=== PATIENT | male | born 1965 | race Caucasian/White ===

== ENCOUNTER 2017-10-10 14:45 | Outpatient (RCR) | payer BC ==
[~2017-10-10 14:45] MED LIST: ANDROGEL1%; ANDROGEL1% TP; CLOTRIMAZOLE/BE1 CRE TP; HCTZ 25MG25 MG PO; LISINOPRIL20 MG PO; LOTRISONE CREAM15 GM TP; PEPCID 20MG TAB20 MG PO; SERTRALINE50 MG PO; TRAZADONE HYDR100 MG PO
== END 2018-01-03 | disposition home or self-care (01) ==
LOC: MKS.ESL.PT
DX: S43.421A Sprain of right rotator cuff capsule, initial encounter (principal)
CPT/HCPCS: G0283-GP

== ENCOUNTER → 2017-10-11 | Outpatient (CLI) | payer BC | LOC: COL.RAD 09:35 | DX: M50.122 Cervical disc disorder at C5-C6 level with radiculopathy (principal); M48.02 Spinal stenosis, cervical region; M89.38 Hypertrophy of bone, other site ==

== ENCOUNTER → 2017-10-14 | Outpatient (CLI) | payer BC ==
[~2017-10-14] VITALS: Ht 190.5 cm; Wt 118.2 kg
[2017-10-14 14:34] VITALS: BP 127/75; PULSE 48
[2017-10-14 15:20] VITALS: BP 148/80; PULSE 48
== END ==
LOC: COL.RAD 13:30
DX: M50.222 Other cervical disc displacement at C5-C6 level (principal)
CPT/HCPCS: J1100

== ENCOUNTER → 2017-10-28 | Outpatient (CLI) | payer BC ==
[~2017-10-28] VITALS: Ht 190.5 cm; Wt 116.0 kg
[2017-10-28 13:11] VITALS: BP 138/86; PULSE 65
[2017-10-28 14:35] VITALS: BP 124/76; PULSE 51
[2017-10-28 14:45] VITALS: BP 125/83; PULSE 55
== END ==
LOC: COL.RAD 12:47
DX: M50.122 Cervical disc disorder at C5-C6 level with radiculopathy (principal)
CPT/HCPCS: J1100

== ENCOUNTER 2020-06-20 16:15 | Outpatient (RCR) | payer BC | END 2020-08-14 10:43 | disposition home or self-care (01) | LOC: MKS.ESL.PT 16:15 | DX: M50.222 Other cervical disc displacement at C5-C6 level (principal) | CPT/HCPCS: G0283-GP ==

== ENCOUNTER 2020-10-11 11:29 | Emergency (ER) | payer BC ==
[~2020-10-11] VITALS: Ht 190.5 cm; Wt 111.4 kg
[2020-10-11 11:51] VITALS: TEMP 97.6
[2020-10-11 12:30] LABS: BASO % 0.3 % (0.0-2.0); EOS # 0.1 (0.0-0.7); GRAN # 4.5 (1.4-6.5); HEMATOCRIT 45.5 % (42.0-52.0); HEMOGLOBIN 15.5 g/dl (13.5-18.0); LYMPH # 1.7 (1.2-3.4); LYMPH % 24.9 % (20.0-51.0); MEAN CELL VOLUME 81 fl (80.0-100.0); MEAN CORPUSCULAR HEMOGLOBIN 28 pg (27.0-31.0); MEAN CORPUSCULAR HGB CONC 34 g/dl (33.0-37.0); MEAN PLATELET VOLUME 10.6 fl (7.4-10.4); MONO # 0.6 (0.1-0.6); MONO % 7.9 % (1.7-9.3); PLATELET COUNT 251 K/mm3 (130-400); RED BLOOD COUNT 5.63 M/mm3 (4.20-5.60); REDCELL DISTRIBUTION WIDTH-CV 12.7 % (11.5-14.5)
[2020-10-11 12:38] LABS: ALANINE AMINOTRANSFERASE 57 U/L (4-49); ALBUMIN 4.6 gm/dL (3.5-5.0); ALKALINE PHOSPHATASE 64 U/L (50-136); ANION GAP 11 mmol/L (7-16); AST,SGOT 43 U/L (15-37); BILIRUBIN,TOTAL 0.6 mg/dL (0.0-1.0); BLOOD UREA NITROGEN 17 mg/dL (9-20); CALCIUM 9.6 mg/dL (8.4-10.2); CARBON DIOXIDE 25 mmol/L (22-30); CHLORIDE 102 mmol/L (98-107); CREATININE, serum 0.81 (0.66-1.25); GLUCOSE 114 mg/dL (74-106); POTASSIUM 3.9 mmol/L (3.4-5.0); SODIUM 138 mmol/L (137-145); TOTAL PROTEIN 7.4 gm/dL (6.4-8.2)
[2020-10-11 12:49] LABS: TROPONIN-I < 0.012 ng/mL (0.000-0.035)
[2020-10-11 13:56] VITALS: BP 108/78; PULSE 54
== END 2020-10-11 14:00 | disposition home or self-care (01) ==
LOC: COL.ER 11:29
PROVIDERS: Emergency Medicine
DX: U07.1 COVID-19 (principal)
CPT/HCPCS: J7030; Q9967

== ENCOUNTER → 2020-10-23 | Outpatient (CLI) | payer BC | LOC: COL.VAS 13:46 | DX: R53.83 Other fatigue (principal); Z86.16 Personal history of COVID-19 ==

== ENCOUNTER 2024-03-13 10:18 | Emergency (ER) | payer BC ==
[~2024-03-13] VITALS: Ht 190.5 cm; Wt 113.6 kg
[~2024-03-13 10:18] MED LIST changes: +CIALIS5 MG PO; +CLARITIN 1010 MG/TAB PO; -SERTRALINE50 MG PO; +ZOLOFT 100MG100 MG PO
[2024-03-13 10:31] VITALS: TEMP 98.1
[2024-03-13] MEDS ORDERED: Ketorolac 30 MG/ML VIAL IV ONE (10:45)
[2024-03-13] MEDS ORDERED: NS 1,000 ML IV ONE (10:45)
[2024-03-13 11:09] LABS: BASO # 0.1 K/mm3 (0.0-0.2); BASO % 0.6 % (0.0-2.0); EOS # 0.2 K/mm3 (0.0-0.7); EOS % 1.6 % (0.0-4.0); HEMATOCRIT 47.9 % (42.0-52.0); HEMOGLOBIN 16.1 g/dl (13.5-18.0); LYMPH # 1.9 K/mm3 (1.2-3.4); MEAN CELL VOLUME 82 fl (80.0-100.0); MEAN CORPUSCULAR HEMOGLOBIN 28 pg (27-31); MEAN CORPUSCULAR HGB CONC 34 g/dl (33.0-37.0); MEAN PLATELET VOLUME 10.5 fl (7.4-10.4); MONO # 0.9 K/mm3 (0.1-0.6); MONO % 8.8 % (1.7-9.3); PLATELET COUNT 218 K/mm3 (130-400); RED BLOOD COUNT 5.84 M/mm3 (4.20-5.60); REDCELL DISTRIBUTION WIDTH-CV 13.1 % (11.5-14.5)
[2024-03-13 11:24] LABS: ALANINE AMINOTRANSFERASE 33 U/L (0-55); ALKALINE PHOSPHATASE 70 U/L (40-150); ANION GAP 12 mmol/L (7-16); AST,SGOT 21 U/L (5-34); BILIRUBIN,TOTAL 0.4 mg/dL (0.2-1.2); BLOOD UREA NITROGEN 11 mg/dL (8-26); C-REACTIVE PROTEIN 1.51 mg/dL (0.00-0.50); CHLORIDE 102 mEq/L (98-107); CREATININE, serum 0.92 mg/dL (0.72-1.25); GLUCOSE 120 mg/dL (70-99); POTASSIUM 3.9 mEq/L (3.5-4.5); SODIUM 139 mEq/L (136-145); TOTAL PROTEIN 7.2 g/dl (6.2-8.1)
[2024-03-13 11:35] LABS: TROPONIN-I < 0.010 ng/mL (0.00-0.033)
[2024-03-13] MEDS ORDERED: Acetaminophen 500 MG TAB PO ONE (11:45)
[2024-03-13] MEDS ORDERED: Albuterol 90 MCG/PUFF 8 GM MDI IH ONE (13:30)
[2024-03-13] MEDS ORDERED: Doxycycline Monohydrate 100 MG CAP PO ONE (13:30)
[2024-03-13] MEDS ORDERED: predniSONE 10 MG TAB PO ONE (13:30)
[2024-03-13] MEDS ORDERED: Morphine 4 MG/ML VIAL IV ONE (13:45)
[2024-03-13] MEDS ORDERED: predniSONE 20 MG TAB PO ONE (14:14)
[2024-03-13 15:02] VITALS: BP 137/87; PULSE 48
== END 2024-03-13 15:02 | disposition home or self-care (01) ==
LOC: COL.ER 10:18
PROVIDERS: Emergency Medicine
DX: R07.89 Other chest pain (principal); U07.1 COVID-19; I10 Essential (primary) hypertension; J12.82 Pneumonia due to coronavirus disease 2019
CPT/HCPCS: J1885; J2270; J7030; J7512